=== PATIENT | female | born 1995 ===

== ENCOUNTER 2021-07-05 08:00 | Inpatient (IN) | payer OTHER ==
[~2021-07-05] VITALS: Ht 170.2 cm; Wt 90.9 kg
[2021-07-06] VITALS (66 sets, daily range): BP systolic 93–139; BP diastolic 50–90; PULSE 60–771; TEMP 98.3–99.2
--- NOTE | 2021-07-06 06:50 | NUR ---
0650 - PATIENT AMBULATORY TO R5 WITH SPOUSE. G3L0. 40+3 WEEKS. ARRIVED ON UNIT FOR SCHEDULED IOL. CHANGES INTO OWN GOWN. ORIENTED TO ROOM. 0655 - EFM EXPLAINED AND PLACED. VS OBTAINED. ASSESSMENT COMPLETED. PATIENT REPORTS NORMAL MOVEMENT. REPORTS IRREGULAR CONTRACTIONS. DENIES LOF AND VB. 0717 - IV TO LW. ROUTINE LABS OBTAINED. LR INFUSING. CONSENTS EXPLAINED AND SIGNED. PLAN OF CARE DISCUSSED. 0730 - PITOCIN EXPLAINED AND STARTED PER PROTOCOL.
[2021-07-06] MEDS ORDERED: PRENATAL TABLET PO (07:34)
[2021-07-06] MEDS ORDERED: OSCAL 500 TAB500 MG (07:34)
[2021-07-06] MEDS ORDERED: SYNTHROID 0.10.15 MG PO (07:34)
[2021-07-06] MEDS ORDERED: COLACE 100100 MG/CAP PO (07:35)
[2021-07-06 07:53] LABS: BASO # 0.1 K/mm3 (0.0-0.2); BASO % 0.4 % (0.0-2.0); EOS # 0.1 K/mm3 (0.0-0.7); EOS % 1.1 % (0.0-4.0); GRAN # 8.9 K/mm3 (1.4-6.5); GRAN % 79.5 % (42.2-75.2); HEMOGLOBIN 11.3 g/dl (12.5-16.0); LYMPH # 1.4 K/mm3 (1.2-3.4); LYMPH % 12.2 % (20.0-51.0); MEAN CELL VOLUME 93 fl (80.0-100.0); MEAN CORPUSCULAR HEMOGLOBIN 32 pg (27-31); MEAN CORPUSCULAR HGB CONC 35 g/dl (33.0-37.0); MEAN PLATELET VOLUME 10.1 fl (7.4-10.4); MONO # 0.6 K/mm3 (0.1-0.6); MONO % 5.4 % (1.7-9.3); PLATELET COUNT 189 K/mm3 (130-400); RED BLOOD COUNT 3.52 M/mm3 (4.10-5.30); REDCELL DISTRIBUTION WIDTH-CV 13.3 % (11.5-14.5)
[2021-07-06 07:56] LABS: HEMATOCRIT 32.8 % (37.0-47.0)
--- NOTE | 2021-07-06 08:15 | NUR ---
0805 - BRP. OFF MONITOR. MD LACIE AT BEDSIDE. 0810 - BACK TO BED FOR SVE WITH MD LACIE. BACK ON MONITOR. SVE 1.5/-2. AROM BY MD LACIE. SMALL, CLEAR FLUID VISUALIZED. 0815 - TOCO TRACING INDESCERNIBLE. TOCO ADJUSTED. CARE ONGOING.
--- NOTE | 2021-07-06 11:10 | NUR ---
BILATERAL SIDE LYING HIP RELEASE
--- NOTE | 2021-07-06 12:44 | NUR ---
1241 - MD LACIE AT BEDSIDE. PATIENT UP TO BR. 1244 - PT RETURN TO BED. SVE BY MD LACIE. -/2. PLAN OF CARE DISCUSSED. PITOCIN GTT CONTINUES. CARE ONGOING.
--- NOTE | 2021-07-06 15:40 | NUR ---
1540 - PATIENT REQUESTING EPIDURAL. PLAN OF CARE DISCUSSED. ADAM ALICEA NOTIFIED. 1550 - LR BOLUS INITIATED. 1604 - ADAM CLARKE AT BEDSIDE. 1610 - EPIDURAL PLACED AND SINGLE SHOT ADMINISTERED BY COMMERCIAL INTERIOR DESIGNER. 1615 - MD LACIE AT BEDSIDE. SVE COMPLETED BY MD LACIE. . PLAN OF CARE DISCUSSED. 1630 - FABIAN CATH PLACED BY JAY LOU. 1635 - PATIENT POSITIONED LL RLS. CARE ONGOING.
--- NOTE | 2021-07-06 17:50 | NUR ---
175 - JAY NAVARRETE PERFORMED SVE. -/-1. 1814 - MD LACIE AT BEDSIDE. PERFORMED SVE. -/0. PLAN OF CARE DISCUSSED. 1829 - PATIENT POSITIONED LL WITH PB. CARE ONGOING.
--- NOTE | 2021-07-06 19:10 | NUR ---
1909- at bedside assessing patient and FHR strip. SVE 7/90/0 per physician. Patient positioned RLS-LL. Plan of care discussed. 2004- at [facility] assessing patient and FHR strip. SVE 9/100/0 per physician. Patient positioned to LLS-RL. 2044- at [facility]. SVE 10/100/+1 per physician. Patient is instructed on pushing instructions. Verbalizes understanding. Alexander is removed at this time. 2054-Patient begins to push with ctx. 2154- at bedside assessing patient progress. Patient continues to push with ctx, moves vertex well. Early decelerations noted on strip. Patient care contineus. 2209- at bedside assessing patient and FHR. Patient continues to push with contractions. 2299- at bedside assessing patient's progress. Patient continues to push with ctx. 2315-Patient is prepped for delivery. 2323-Spontaneous vaginal delivery of viable infant female. Infant to patient's abdomen. Cord clamped x2 and cut by FOB. Infant placed on mothers chest, Himanshu RN assumes care of infant. 2326-Spontaneous vaginal delivery of intact placenta. Fundal massage done, mod bleeding with clots noted. begins repair at this time. Pitocin started per protocol. 2330-Methergine administered to Lt Thigh. See EMAR. 2334-Hemabate adminsistered to Rt Thigh. See EMAR. 2335- finishes repair. Fundal massage done, bleeding within normal limits. Peripad changed, pericare completed. Ice pack to perineum. Plan of care discussed. Patient verbalizes understanding.
--- NOTE | 2021-07-06 22:55 | NUR ---
2255-[facility] offscale at this time. This RN and physician at bedside. Ctx are palpable, firm. Patient is able to feel ctx and push with each.
[2021-07-07] VITALS (9 sets, daily range): BP systolic 107–115; BP diastolic 54–71; PULSE 74–101; TEMP 97.6–98.7
--- NOTE | 2021-07-07 11:20 | NUR ---
[id number] This RN in nursery with infant while mother sleeps.
--- NOTE | 2021-07-07 12:24 | NUR ---
stopped by but nothing needed at this time.
[2021-07-07] MEDS ORDERED: MOTRIN 800800 MG/TAB PO (13:27)
--- NOTE | 2021-07-07 19:22 | NUR ---
REPORT RECEIVED. PLAN OF CARE REVIEWED WITH PATIENT AND SPOUSE. INFANT IN ROOM, HELD BY FATHER. GRANDMOTHER IN ROOM.
[2021-07-08 08:10] VITALS: BP 117/66; PULSE 95; TEMP 97.6
== END 2021-07-08 13:55 | disposition home or self-care (01) | DRG 806 ==
LOC: LDR 07-06 06:34 → OB 07-07 03:00
PROVIDERS: ADMIT Obstetrics & Gynecology
PROC: 10E0XZZ Delivery of Products of Conception, External Approach (ICD-10-PCS; principal; 2021-07-06)
PROC: 0KQM0ZZ Repair Perineum Muscle, Open Approach (ICD-10-PCS; 2021-07-06)
PROC: 10907ZC Drainage of Amniotic Fluid, Therapeutic from Products of Conception, Via Natural or Artificial Opening (ICD-10-PCS; 2021-07-06)
PROC: 3E033VJ Introduction of Other Hormone into Peripheral Vein, Percutaneous Approach (ICD-10-PCS; 2021-07-06)
DX: O48.0 Post-term pregnancy (principal); O72.1 Other immediate postpartum hemorrhage; Z37.0 Single live birth; O70.1 Second degree perineal laceration during delivery; O99.284 Endocrine, nutritional and metabolic diseases complicating childbirth; E03.9 Hypothyroidism, unspecified; O69.1XX0 Labor and delivery complicated by cord around neck, with compression, not applicable or unspecified; Z3A.40 40 weeks gestation of pregnancy
CPT/HCPCS: J2210; J2405; J2590; J2795; J7120

== ENCOUNTER 2024-01-05 02:08 | Inpatient (IN) | payer BC ==
[~2024-01-05] VITALS: Ht 170.2 cm; Wt 90.9 kg
[2024-01-05] VITALS (32 sets, daily range): BP systolic 91–133; BP diastolic 57–89; PULSE 80–131; TEMP 98.3–98.7
[~2024-01-05 02:08] MED LIST: COLACE 100100 MG/CAP PO; MOTRIN 800800 MG/TAB PO; OSCAL 500 TAB500 MG; PRENATAL TABLET PO; SYNTHROID 0.10.15 MG PO
[2024-01-05] MEDS ORDERED: LR & Oxytocin 500 ML IV SCH (02:45)
[2024-01-05] MEDS ORDERED: LR 1,000 ML IV SCH (02:45)
[2024-01-05 03:52] LABS: HEMOGLOBIN 11.3 g/dl (12.5-16.0); MEAN CELL VOLUME 94 fl (80.0-100.0); MEAN CORPUSCULAR HEMOGLOBIN 32 pg (27-31); MEAN CORPUSCULAR HGB CONC 34 g/dl (33.0-37.0); MEAN PLATELET VOLUME 9.3 fl (7.4-10.4); PLATELET COUNT 185 K/mm3 (130-400); RED BLOOD COUNT 3.57 M/mm3 (4.10-5.30); REDCELL DISTRIBUTION WIDTH-CV 13.3 % (11.5-14.5)
[2024-01-05 03:56] LABS: HEMATOCRIT 33.4 % (37.0-47.0)
[2024-01-05 04:32] LABS: BAND 11 % (0-10); EOSINOPHIL 1 % (0-4); LYMPHOCYTE 18 % (20.0-51.0); NEUTROPHILS 62 % (42.0-75.2); PLATELET ESTIMATE NORMAL (NORMAL)
--- NOTE | 2024-01-05 05:03 | NUR ---
PT SITTING ON THE BALL. DR. DOOLEY IN ROOM DISCUSSING PLAN OF CARE WITH PT. PT ASSISTED TO BED U/S USED TO SCAN POSITION. BABY IS VERTEX. PT DECLINED TO HAVE VAG EXAM DONE. SHE STATED SHE WANTS MINIMAL VAG EXAMS OR INTERVENTIONS DONE.
[2024-01-05] MEDS ORDERED: Ondansetron 4 MG/2 ML VIAL IV PRN (07:15)
[2024-01-05] MEDS ORDERED: diphenhydrAMINE 25 MG CAP PO PRN (07:15)
[2024-01-05] MEDS ORDERED: ePHEDrine 50 MG/10 ML VIAL IV PRN (07:15)
[2024-01-05] MEDS ORDERED: diphenhydrAMINE 50 MG/ML 1 ML VIAL IV PRN (07:15)
[2024-01-05] MEDS ORDERED: Naloxone 0.4 MG/ML VIAL IV PRN ×2 (07:15→15:00)
--- NOTE | 2024-01-05 07:20 | NUR ---
ROLES ON UNIT AND AT BEDSIDE. INTRODUCTIONS WERE MADE. DR ESTEVES GAVE THE PT THE OPTION TO START PIT NOW OR WAIT ANOTHER HOUR. PT DECIDED TO GO AHEAD AND START SOME PIT. SHE WAS CONCERNED ABOUT PITOCIN BEING UPPED TO QUICKLY AND PT WAS REASSURED THAT WE CAN GO SLOWLY. DR ESTEVES ALSO LET PT KNOW THAT SHE WAS OKAY WITH HER HAVING SOME TOAST FOR BREAKFAST.
--- NOTE | 2024-01-05 10:10 | NUR ---
YPT SEATED ON BED. O2 AND BP MONITORS APPLIED. VS WNL. SINGLE SHOT AT 1010. PT TOLERATED PROCEEDURE WELL. PT REPOSITIONED TO WEDGE LEFT.
[2024-01-05] MEDS ORDERED: ROPivacaine PF 0.2% 200 ML IV ONE (10:22)
--- NOTE | 2024-01-05 14:27 | NUR ---
1340- SVE SHOWS PT COMPLETE/100/0. CALLED DR ESTEVES TO UPDATE AND LET HER KNOW WE WOULD NEED SOME TIME TO WORK ON PUSHING. DR ESTEVES SAID OKAY, AND ASKED US TO CALL HER WHEN WE NEED HER. PT PUSHED ON HER RIGHT SIDE FOR A WHILE. AND BEGAN HAVING A WINDOW. TRICIA AT BEDSIDE REDOSING PT EPIDURAL. USED TUG-O-WAR TO ASSIST PT IN PUSHING EFFORTS. PT THEN TURNED TO LL TO PUSH FOR A WHILE. 1412- DIFFICULTY TRACING FHT. DID GET FHT ON THE MONITOR BUT IN THE 70'S FOR A MINUTE. PT WAS INCOURAGED TO STOP PUSING DURRING THIS TIME AND BLOW THROUGH CX. PT WAS FEELING PRESSURE AND HAVING A DIFFICULT TIME. 1417- CALLED DR ESTEVES TO UPDATE ON FHT DECLES AND PT FEELING PRESSURE. DR ESTEVES SAID SHE WAS ON HER WAY. 1419- CALLED DR ESTEVES BACK TO LET HER KNOW BABY WAS ON THE PERINEUM. DR ESTEVES SAID SHE WAS IN HER CAR COMING NOW. 1422- PIT AT 6 WAS TURNED OFF. 1425- DR ESTEVES AT BEDSIDE, PT PUSHING SPONTANEOUSLY. 1427- DR ETSEVES ATTENDED THE SPONTANEOUS VAGINAL DELIVERY OF A VIABLE BABY BOY. HAD X2 NUCHAL, WHICH WAS CLAMPED AND CUT AT THE PERINUM. WAS WRAPPED IN BODY CORD WELL. DR ESTEVES UNTANGLED AND PLACED HIM ON MOTHERS CHEST. WAS STIMULATED BY NURSERY NURSE ROJAS AND CHARGE NURSE SAFIA. 1431- SPONTANEOUS DELIVERY OF PLACENTA. DR ESTEVES DID REPAIR AND PITOCIN WAS STARTED PER PROTOCOL. QBL 150. BLEEDING MINIMAL. VS STABLE. BED PLACED BACK TOGETHER, PT WAS REPOSITIONED TO WITH INFANT SKIN TO SKIN ON CHEST.
[2024-01-05] MEDS ORDERED: Mag/Al Hydrox/Simeth Susp 30 ML CUP PO PRN (15:00)
[2024-01-05] MEDS ORDERED: Acetaminophen 500 MG TAB PO SCH (15:00)
[2024-01-05] MEDS ORDERED: Phenylephrine/Mineral Oil/Petrolatum 57 GM TUBE RC PRN (15:00)
[2024-01-05] MEDS ORDERED: Measles/Mumps/Rubella Virus Vaccine Live w Diluent 0.5 ML VIAL SQ SCH (15:00)
[2024-01-05] MEDS ORDERED: oxyCODONE 5 MG TAB PO PRN (15:00)
[2024-01-05] MEDS ORDERED: Loratadine 10 MG TAB PO PRN (15:00)
[2024-01-05] MEDS ORDERED: Ibuprofen 800 MG TAB PO SCH (15:00)
[2024-01-05] MEDS ORDERED: Magnes Hydrox (MOM) 80 MG/ML 30 ML CUP PO PRN (15:00)
[2024-01-05] MEDS ORDERED: Witch Hazel 50% Pads Bulk TUB TP PRN (15:00)
[2024-01-05] MEDS ORDERED: Sennosides/Docusate 8.6-50 MG TAB PO SCH (17:00)
--- NOTE | 2024-01-05 17:20 | NUR ---
CALLED DR ESTEVES DUE TO PT FEELING NAUSEA AFTER ZOFRAN PER PT REQUEST. DR ESTEVES SAID THAT PT COULD HAVE 12.5 IM OF PHENEGRAN, BUT TO LET HER KNOW IT MAY MAKE HER TIRED. PT REFUSED PHENEGRAN AND DECIDED TO JUST VOMIT INSTEAD.
[2024-01-05] MEDS ORDERED: traZODone 50 MG TAB PO PRN (21:00)
[2024-01-06 07:00] VITALS: BP 110/75; PULSE 86; TEMP 97.5
--- NOTE | 2024-01-06 07:35 | NUR ---
PATIENT TAKING OWN SYNTRHOID MEDICATION FROM HOME.
[2024-01-06] MEDS ORDERED: Prenatal Vitamins/Iron/FA TAB PO SCH (09:00)
[2024-01-06] MEDS ORDERED: MOTRIN 800800 MG/TAB PO (11:50)
== END 2024-01-06 15:25 | disposition home or self-care (01) | DRG 560 ==
LOC: LDRO 02:08 → OB 02:20 → LDR 02:20 → OB 20:53
PROVIDERS: Obstetrics & Gynecology; ADMIT Obstetrics & Gynecology
PROC: 10E0XZZ Delivery of Products of Conception, External Approach (ICD-10-PCS; principal; 2024-01-05)
PROC: 0KQM0ZZ Repair Perineum Muscle, Open Approach (ICD-10-PCS; 2024-01-05)
DX: O99.284 Endocrine, nutritional and metabolic diseases complicating childbirth (principal); Z37.0 Single live birth; O62.0 Primary inadequate contractions; O70.1 Second degree perineal laceration during delivery; E03.9 Hypothyroidism, unspecified; O69.1XX0 Labor and delivery complicated by cord around neck, with compression, not applicable or unspecified; Z3A.39 39 weeks gestation of pregnancy; Z79.890 Hormone replacement therapy
CPT/HCPCS: J2405; J2590; J2795; J7120